=== PATIENT | female | born 1930 | race Caucasian/White ===

== ENCOUNTER 2018-01-09 04:36 | Emergency (ER) | payer MEDICARE ==
[~2018-01-09 04:36] MED LIST: AMOX-362 PO; DICY-42 PO; GLIM2TAB42 PO; LEVO75TA73 PO; METF-421 PO; ONDA4TAB97 PO; SIMV10TA98 PO; TRAM-627 PO
--- NOTE | 2018-01-09 04:38 | ER Report ---
History and Physical Time Seen By MD: 04:38 HPI/ROS CHIEF COMPLAINT: Abdominal pain, right flank pain, chest pain HISTORY OF PRESENT ILLNESS: Patient is an 87-year-old female here with complaints of right-sided abdominal flank pain which woke the patient from sleep at approximately 3:00 this morning. Patient denies prior history of nephrolithiasis however notes that she went to bathroom and within that time. Had several episodes of emesis. Patient then developed chest pain which is localized to the mid sternum with radiation to the left and right chest without shortness of breath. Patient denies fever, chills, shortness of breath, hematuria, dysuria, melena, hematochezia or hematemesis. Patient admits to history of diabetes, hyperlipidemia however denies hypertension, prior history of cardiac disease, smoking. REVIEW OF SYSTEMS: Constitutional: No fever, no chills. Eyes: No discharge. ENT: No sore throat. Cardiovascular: + mild chest pain mid chest with radiation to left and right mid chest, no palpitations. Respiratory: No cough, no shortness of breath. Gastrointestinal: + resolving abdominal pain, + vomiting x 3 episodes Genitourinary: No hematuria. Musculoskeletal: + resolving right flank back pain. Skin: No rashes. Neurological: No headache. Allergies: Coded Allergies: Sulfa (Sulfonamide Antibiotics) (Verified Allergy, Mild, 01/09/18) codeine (Verified Allergy, Mild, MENTAL STATUS CHANGES, 01/09/18) Home Meds Active Scripts Ondansetron (ZOFRAN ODT) 4 Mg Tab.rapdis, 4 MG PO Q6H Y for NAUSEA/VOMITING, # 20 TAB.ANIL 0 Refills Prov:LISA NOLASCO DO 01/09/18 Ciprofloxacin Hcl (CIPROFLOXACIN HCL) 500 Mg Tablet, 500 MG PO Q12H for 7 Days, #14 TAB Prov:LISA NOLASCO DO 01/09/18 Reported Medications Metformin Hcl (METFORMIN HCL) 1,000 Mg Tablet, 0.5 TAB PO BID, TAB 07/25/16 Glimepiride (AMARYL) 2 Mg Tablet, 2 MG PO BID 07/25/16 Levothyroxine Sodium (LEVOTHYROXINE SODIUM) 75 Mcg Tablet, 75 MCG PO QDAY, TAB 07/25/16 Discontinued Reported Medications Simvastatin (SIMVASTATIN) 10 Mg Tablet, 10 MG PO HS, TAB 10/05/16 Discontinued Scripts Tramadol Hcl (ULTRAM) 50 Mg Tablet, 50 MG PO Q6H for PAIN, #20 TAB 0 Refills Prov:ZAHIDA FLANAGAN MD 02/16/17 Amoxicillin (AMOXICILLIN) 500 Mg Capsule, 1 CAP PO Q8H, #21 CAPSULE 0 Refills TAKE ONE CAPSULE BY MOUTH EVERY 8 HOURS Prov:ZAHIDA FLANAGAN MD 02/16/17 Past Medical/Surgical History Arthritis, thyroid disorder, diabetes, HLD Constitutional Vital Sign - Last 24 Hours 01/09/18 01/09/18 01/09/18 01/09/18 04:42 04:43 04:51 05:00 Temp 97.8 Pulse 96 89 Resp 20 18 B/P (MAP) 157/74 157/74 (101) 126/61 (82) Pulse Ox 93 91 O2 Delivery Room Air 01/09/18 01/09/18 01/09/18 01/09/18 05:06 05:21 05:26 06:00 Pulse 74 82 84 Resp 10 16 16 B/P (MAP) 102/46 (64) Pulse Ox 88 88 87 Physical Exam General Appearance: The patient is alert, has no immediate need for airway protection and no signs of toxicity. NAD Eyes: Pupils equal and round no pallor or injection. ENT, Mouth: Mucous membranes are moist. Respiratory: There are no retractions, lungs are clear to auscultation. Cardiovascular: Regular rate and rhythm. Gastrointestinal: Abdomen is soft and non tender, no masses, bowel sounds normal. Neurological: No focal neuro deficits Skin: Warm and dry, no rashes. Musculoskeletal: Neck is supple non tender. Extremities are nontender, nonswollen and have full range of motion. DIFFERENTIAL DIAGNOSIS: After history and physical exam differential diagnosis was considered for nephrolithiasis, urinary tract infection, pyelonephritis, muscle strain, GI infection, food borne illness. Medical Decision Making Data Points Result Diagram: 01/09/18 0505 01/09/18 0505 Laboratory Hematology Test 01/09/18 04:40 01/09/18 05:05 Urine Color Yellow Urine Clarity Slightly-cloudy Urine pH 5.0 pH (4.8-9.5) Urine Specific [place] 1.025 Urine Protein 30 mg/dL (NEGATIVE) Urine Glucose (UA) 50 mg/dL (NEGATIVE) Urine Ketones Negative mg/dL (NEGATIVE) Urine Blood Negative (NEGATIVE) Urine Nitrite Negative (NEGATIVE) Urine Bilirubin Negative (NEGATIVE) Urine Urobilinogen Negative mg/dL (0.2-1.9) Urine Leukocyte Esterase Moderate (NEGATIVE) Urine RBC 1 /HPF (0-2/HPF) Urine WBC 5 /HPF (0-5/HPF) Urine Squamous Epithelial Cells Many /LPF (</=FEW) Urine Bacteria Negative /HPF (NONE-FEW) Urine Hyaline Casts Few /LPF (NONE-FEW) Urine Mucus Few /HPF (NONE-FEW) Red Blood Count 5.14 M/uL (4.17-5.56) Mean Corpuscular Volume 91.0 fL (80.0-96.0) Mean Corpuscular Hemoglobin 31.2 pg (26.0-33.0) Mean Corpuscular Hemoglobin Concent 34.3 g/dL (32.0-36.0) Red Cell Distribution Width 13.7 % (11.5-14.5) Mean Platelet Volume 8.0 fL (7.2-11.1) Neutrophils (%) (Auto) 83.6 % (39.4-72.5) Lymphocytes (%) (Auto) 7.8 % (17.6-49.6) Monocytes (%) (Auto) 7.2 % (4.1-12.4) Eosinophils (%) (Auto) 1.1 % (0.4-6.7) Basophils (%) (Auto) 0.3 % (0.3-1.4) Nucleated RBC Relative Count (auto) 0.0 /100WBC Neutrophils # (Auto) 6.1 K/uL (2.0-7.4) Lymphocytes # (Auto) 0.6 K/uL (1.3-3.6) Monocytes # (Auto) 0.5 K/uL (0.3-1.0) Eosinophils # (Auto) 0.1 K/uL (0.0-0.5) Basophils # (Auto) 0.0 K/uL (0.0-0.1) Nucleated RBC Absolute Count (auto) 0.00 K/uL Prothrombin Time 12.9 seconds (12.0-14.4) Prothromb Time International Ratio 0.97 Activated Partial Thromboplast Time 28 seconds (23-35) Sodium Level 139 mmol/L (137-145) Potassium Level 3.8 mmol/L (3.5-5.0) Chloride Level 107 mmol/L (98-107) Carbon Dioxide Level 23 mmol/L (22-31) Blood Urea Nitrogen 30 mg/dl (7-18) Creatinine 1.20 mg/dl (0.52-1.04) Glomerular Filtration Rate Calc 42.5 Random Glucose 226 mg/dl (75-110) Lactate 1.0 mmol/L (0.7-2.1) Calcium Level 8.8 mg/dl (8.4-10.2) Total Bilirubin 0.9 mg/dl (0.2-1.3) Aspartate Amino Transf (AST/SGOT) 21 U/L (0-35) Alanine Aminotransferase (ALT/SGPT) 23 U/L (0-56) Alkaline Phosphatase 65 U/L (0-126) Troponin I < 0.012 ng/ml B-Type Natriuretic Peptide 43 pg/ml (0-100) Total Protein 6.7 g/dl (6.3-8.2) Albumin 3.6 g/dl (3.5-5.0) Lipase 225 U/L (23-300) Chemistry Test 01/09/18 04:40 01/09/18 05:05 Urine Color Yellow Urine Clarity Slightly-cloudy Urine pH 5.0 pH (4.8-9.5) Urine Specific [place] 1.025 Urine Protein 30 mg/dL (NEGATIVE) Urine Glucose (UA) 50 mg/dL (NEGATIVE) Urine Ketones Negative mg/dL (NEGATIVE) Urine Blood Negative (NEGATIVE) Urine Nitrite Negative (NEGATIVE) Urine Bilirubin Negative (NEGATIVE) Urine Urobilinogen Negative mg/dL (0.2-1.9) Urine Leukocyte Esterase Moderate (NEGATIVE) Urine RBC 1 /HPF (0-2/HPF) Urine WBC 5 /HPF (0-5/HPF) Urine Squamous Epithelial Cells Many /LPF (</=FEW) Urine Bacteria Negative /HPF (NONE-FEW) Urine Hyaline Casts Few /LPF (NONE-FEW) Urine Mucus Few /HPF (NONE-FEW) White Blood Count 7.3 k/uL (4.5-11.0) Red Blood Count 5.14 M/uL (4.17-5.56) Hemoglobin 16.0 g/dL (12.0-16.0) Hematocrit 46.8 % (34.0-47.0) Mean Corpuscular Volume 91.0 fL (80.0-96.0) Mean Corpuscular Hemoglobin 31.2 pg (26.0-33.0) Mean Corpuscular Hemoglobin Concent 34.3 g/dL (32.0-36.0) Red Cell Distribution Width 13.7 % (11.5-14.5) Platelet Count 199 K/uL (150-450) Mean Platelet Volume 8.0 fL (7.2-11.1) Neutrophils (%) (Auto) 83.6 % (39.4-72.5) Lymphocytes (%) (Auto) 7.8 % (17.6-49.6) Monocytes (%) (Auto) 7.2 % (4.1-12.4) Eosinophils (%) (Auto) 1.1 % (0.4-6.7) Basophils (%) (Auto) 0.3 % (0.3-1.4) Nucleated RBC Relative Count (auto) 0.0 /100WBC Neutrophils # (Auto) 6.1 K/uL (2.0-7.4) Lymphocytes # (Auto) 0.6 K/uL (1.3-3.6) Monocytes # (Auto) 0.5 K/uL (0.3-1.0) Eosinophils # (Auto) 0.1 K/uL (0.0-0.5) Basophils # (Auto) 0.0 K/uL (0.0-0.1) Nucleated RBC Absolute Count (auto) 0.00 K/uL Prothrombin Time 12.9 seconds (12.0-14.4) Prothromb Time International Ratio 0.97 Activated Partial Thromboplast Time 28 seconds (23-35) Glomerular Filtration Rate Calc 42.5 Lactate 1.0 mmol/L (0.7-2.1) Calcium Level 8.8 mg/dl (8.4-10.2) Total Bilirubin 0.9 mg/dl (0.2-1.3) Aspartate Amino Transf (AST/SGOT) 21 U/L (0-35) Alanine Aminotransferase (ALT/SGPT) 23 U/L (0-56) Alkaline Phosphatase 65 U/L (0-126) Troponin I < 0.012 ng/ml B-Type Natriuretic Peptide 43 pg/ml (0-100) Total Protein 6.7 g/dl (6.3-8.2) Albumin 3.6 g/dl (3.5-5.0) Lipase 225 U/L (23-300) Coagulation Test 01/09/18 05:05 Prothrombin Time 12.9 seconds Prothromb Time International Ratio 0.97 Activated Partial Thromboplast Time 28 seconds Urinalysis Test 01/09/18 04:40 Urine Color Yellow Urine Clarity Slightly-cloudy Urine pH 5.0 pH (4.8-9.5) Urine Specific [place] 1.025 Urine Protein 30 mg/dL (NEGATIVE) Urine Glucose (UA) 50 mg/dL (NEGATIVE) Urine Ketones Negative mg/dL (NEGATIVE) Urine Blood Negative (NEGATIVE) Urine Nitrite Negative (NEGATIVE) Urine Bilirubin Negative (NEGATIVE) Urine Urobilinogen Negative mg/dL (0.2-1.9) Urine Leukocyte Esterase Moderate (NEGATIVE) Urine RBC 1 /HPF (0-2/HPF) Urine WBC 5 /HPF (0-5/HPF) Urine Squamous Epithelial Cells Many /LPF (</=FEW) Urine Bacteria Negative /HPF (NONE-FEW) Urine Hyaline Casts Few /LPF (NONE-FEW) Urine Mucus Few /HPF (NONE-FEW) EKG/Imaging EKG Interpretation 12 lead EKG: Normal sinus rhythm, rate 85, QTc 459, incomplete bundle branch block Rhythm: normal sinus rhythm [place]: normal QRS: normal ST segments: normal Monitor Interpretation: Normal Sinus Rhythm Imaging COMPUTED TOMOGRAPHY ABDOMEN AND PELVIS WITH INTRAVENOUS CONTRAST DATE OF EXAM: 01/09/2018 4:50 AM INDICATION: Generalized chest and abdominal pain. COMPARISON: None. TECHNIQUE: Contrast enhanced abdomen and pelvis CT performed during the injection of 75 ml of Isovue 370. Sagittal and coronal reconstructions were performed. One of the following dose optimization techniques was utilized in the performance of this exam: Automated exposure control; adjustment of the mA and/or kV according to the patient's size; or use of an iterative reconstruction technique. Specific details can be referenced in the facility's radiology CT exam operational policy. FINDINGS: Lung bases: 2 mm right lower lobe nodule on image 19 series 2 and 4 mm left lower lobe nodule on image 15. Mild atelectasis. Coronary artery calcifications. Liver and hepatic vasculature: Normal. Gallbladder and bile ducts: Normal. Spleen: Normal. Pancreas: 14 mm relatively thin-walled cystic lesion with small adjacent calcification near the junction of the body and tail of the pancreas. No apparent acute abnormality. Adrenals: Normal. Kidneys, ureters and bladder: No acute abnormality or suspicious lesion. Bilateral parapelvic cysts as well as exophytic cortical cyst on the right. Retroperitoneum and aorta: Nonaneurysmal aorta with [id number] atherosclerosis. No adenopathy. GI tract, mesentery and peritoneum: Several loops of small bowel may have slightly increased wall enhancement. No evidence of obstruction. No pneumatosis or pneumoperitoneum. No significant free fluid. Normal appendix. Moderate to severe sigmoid diverticulosis. Small hiatal hernia. Uterus and adnexa: 2 cm simple appearing left ovarian cyst. Otherwise unremarkable. Bones and soft tissues: No acute abnormality or suspicious lesion. Osteitis pubis. Moderate multilevel spondylosis. L5 and S1 are fused. IMPRESSION: 1. Question infectious or inflammatory enteritis. 2. Moderate to severe colonic diverticulosis. 3. Small hiatal hernia. 4. Pulmonary nodules measuring up to 4 mm in diameter. Current Fleischner Society recommendations for incidental pulmonary nodules <6mm in size (average of long and short axis): - In a patient with low risk for malignancy (i.e., minimal or absent smoking history, no known malignancy or other risk factors): No routine follow-up. - In a patient at high risk for malignancy (e.g., smoking history and/or other known risk factors): Optional noncontrast CT at 12 months. If unchanged no further follow-up necessary. Nodules less than 6 mm do not require routine follow-up, but certain patients at high risk with suspicious nodule morphology, upper lobe location, or both may warrant 12 month follow-up. Jimmie H, Leonardo D, Nicole J, et al. Guidelines for management of small pulmonary nodules detected on CT images: from the Fleischner society 2017. 5. 14 mm cystic pancreatic lesion with no apparent worrisome features. INCIDENTAL PANCREATIC CYST FOLLOWUP IN PATIENTS ? 80 YEARS OLD Assuming absence of Worrisome Features/High-Risk Stigmata on imaging, clinical findings relevant to the pancreas (including jaundice, anorexia, weight loss, palpable mass, or steatorrhea), or a relevant abnormal laboratory value (eg, elevated amylase) Follow-up imaging with Pancreas protocol CT or MRI (with and without contrast) *The decision to pursue imaging follow-up and/or EUS/FNA should be anchored to a patient's overall health and preferences; such work up is only advised if the patient is a surgical candidate Cyst ? 2.5 cm * Reimage q 2 years x 2 * STOP if stable * Interval growth (Defined as 100% increase in l ngest axis diameter for cysts <0.5cm, 50% increase for cysts >= 0.5cm and <1.5cm, and 20% increase for cysts >= 1.5 cm.) * Cyst is still <= 2.5 cm * Reimage q 1 year* STOP if stabilizes or if no longer surgical candidate ( The decision to discontinue imaging follow-up is dependent on a patient's surgical candidacy and preferences, and the duration of the cyst's stability. * Cyst is > 2.5 cm * EUS/FNA based on overall health, preferences, and surgical candidacy "High Risk Stigmata" Obstructive jaundice with cyst in head of pancreas Enhancing solid component within thee cyst Main pancreatic duct caliber >10mm in absence of obstructing lesion Reference: ACR. Management of Incidental Pancreatic Cysts: A White Paper of the ACR Incidental Findings Committee JACR. Nov, 2016. [email or web address] TWO VIEW CHEST 01/09/2018 4:50 AM. INDICATION: Chest and abdominal pain. COMPARISON: Same day CT abdomen and pelvis. FINDINGS: Lungs are well-expanded. Mild atelectasis, lungs are otherwise clear. No pneumothorax or pleural effusion. Pulmonary vasculature is unremarkable. Heart size is normal. IMPRESSION: No acute cardiopulmonary abnormality. ED Course/Re-evaluation ED Course Patient is an 87-year-old female here with complaints of abdominal pain, flank pain, nausea, vomiting which woke the patient at approximately 3:00 this morning. Patient reports several episodes of emesis followed by bilateral and mid sternal chest pain without shortness breath, cough, fevers. She initially reported having right-sided flank pain, right-sided abdominal pain which has since improved. Patient admits to a history of hyperlipidemia, diabetes however denies hypertension, smoking history, history of cardiac disease. Patient labs were remarkable for mild DEMETRIA with a creatinine 1.2, glucose at 226. Lactate was unremarkable at 1.0. UA showed moderate leuk esterase, culture pending. EKG showed no acute ischemic findings. Troponin undetectable on initial draw. Patient received a bolus of normal saline, Zofran, aspirin. On further clinical evaluation, patient's symptoms seemed to be more localized to the intra- abdominal region. Chest x-ray showed no acute findings. CT abdomen and pelvis showed no acute findings, (patient was advised to follow up with PCP regarding incidental findings and possible need for re imaging at a later date, see report ). Patient was placed on Cipro for a presumed complicated UTI due to clinical presentation. Urine culture pending. Patient agreed to follow up with PCP in the next several days and to return promptly if she develops worsening symptoms , abdominal pain, dyspnea, fevers, poor PO intake. . Decision to Disposition Date: Jan 09, 2018 Decision to Disposition Time: 06:38 Depart Departure Latest Vital Signs Vital Signs Date Time Temp Pulse Resp B/P (MAP) Pulse Ox O2 Delivery O2 Flow Rate FiO2 01/09/18 06:00 102/46 (64) 01/09/18 05:26 84 16 87 01/09/18 04:42 97.8 Room Air Impression: Primary Impression: UTI (urinary tract infection) Additional Impression: Nausea & vomiting Condition: Improved Disposition: HOME OR SELF-CARE Referrals: ISABELA GARCIA DO (PCP) New Scripts Ondansetron (ZOFRAN ODT) 4 Mg Tab.rapdis 4 MG PO Q6H Y for NAUSEA/VOMITING, #20 TAB.ANIL 0 Refills Prov: LISA NOLASCO DO 01/09/18 Ciprofloxacin Hcl (CIPROFLOXACIN HCL) 500 Mg Tablet 500 MG PO Q12H for 7 Days, #14 TAB Prov: LISA NOLASCO DO 01/09/18 Patient Instructions: Acute Nausea and Vomiting (ED), Ciprofloxacin (By mouth) , Ondansetron (By mouth, Into the mouth), Urinary Tract Infection in Women (ED) Additional Instructions: Please hold taking your metformin for the next 48 hours as you had been given contrast dye for your CT scan. Please drink plenty of water. As mentioned previously, there were several incidental findings on the CT scan that he should discuss with her family doctor as they may need further repeat imaging in the future. You will be treated for a urinary tract infection a complete 7 day course of ciprofloxacin (urine culture is pending). Please take one tablet twice daily for 7 days. Please return promptly should you develop worsening pain , nausea, vomiting, fevers or chills. You may take 1 tablet of Zofran every 6-8 hours as needed for nausea Problem Qualifiers LISA NOLASCO DO Jan 09, 2018 04:38
[2018-01-09] MEDS ORDERED: NS(*) 0.9% 1000 ML BAG 1,000 ML IV ONE (04:50)
[2018-01-09] MEDS ORDERED: ONDANSETRON 4 MG/2 ML VIAL IVP ONE (04:50)
[2018-01-09] MEDS ORDERED: ASPIRIN 81 MG CHEW PO ONE (04:50)
--- NOTE | 2018-01-09 05:04 | EKG ---
FACILITY: [facility] PATIENT NAME: HEIDY MONTELONGO : [id number] MR: [id number] V: [id number] EXAM DATE: ORDERING PHYSICIAN: LISA NOLASCO TECHNOLOGIST: WILEY Test Reason : CP Blood Pressure : / mmHG Vent. Rate : 085 BPM Atrial Rate : 085 BPM P-R Int : 176 ms QRS Dur : 094 ms QT Int : 386 ms P-R-T Axes : 059 080 058 degrees QTc Int : 459 ms Normal sinus rhythm Incomplete right bundle branch block Borderline ECG When compared with ECG of 25-JUL-2016 13:54, Previous ECG has undetermined rhythm, needs review Confirmed by JUDIT SKINNER ([id number]) on 01/09/2018 6:49:33 AM Referred By: GAURAV Confirmed By:JUDIT SKINNER
[2018-01-09] MEDS ORDERED: IOPAMIDOL 76% 100 ML INFUS BTL 100 ML ONE (05:07)
[2018-01-09 05:14] LABS: PLATELET COUNT, AUTOMATED 199 K/uL (150-450)
[2018-01-09 05:27] LABS: INR 0.97
--- NOTE | 2018-01-09 06:15 | RADIOLOGY IMAGING REPORT ---
FACILITY: [facility] [place] PATIENT NAME: Micheline Phoenix : 1930 MR: [id number] V: [id number] EXAM DATE: [id number] ORDERING PHYSICIAN: LISA NOLASCO TECHNOLOGIST: Location: [facility] Patient: Micheline Phoenix : 1930 Visit/Account:[id number] Date of Sevice: 01/09/2018 COMPUTED TOMOGRAPHY ABDOMEN AND PELVIS WITH INTRAVENOUS CONTRAST DATE OF EXAM: 01/09/2018 4:50 AM INDICATION: Generalized chest and abdominal pain. COMPARISON: None. TECHNIQUE: Contrast enhanced abdomen and pelvis CT performed during the injection of 75 ml of Isovue 370. Sagittal and coronal reconstructions were performed. One of the following dose optimization te chniques was utilized in the performance of this exam: Automated exposure control; adjustment of the mA and/or kV according to the patient's size; or use of an iterative reconstruction technique. Spec [facility] details can be referenced in the facility's radiology CT exam operational policy. FINDINGS: Lung bases: 2 mm right lower lobe nodule on image 19 series 2 and 4 mm left lower lobe nodule on imag e 15. Mild atelectasis. Coronary artery calcifications. Liver and hepatic vasculature: Normal. Gallbladder and bile ducts: Normal. Spleen: Normal. Pancreas: 14 mm relatively thin-walled cystic lesion with small adjacent calcification near the junc tion of the body and tail of the pancreas. No apparent acute abnormality. Adrenals: Normal. Kidneys, ureters and bladder: No acute abnormality or suspicious lesion. Bilateral parapelvic cysts as well as exophytic cortical cyst on the right. Retroperitoneum and aorta: Nonaneurysmal aorta with [id number] atherosclerosis. No adenopathy . GI tract, mesentery and peritoneum: Several loops of small bowel may have slightly increased wall en hancement. No evidence of obstruction. No pneumatosis or pneumoperitoneum. No significant free flu id. Normal appendix. Moderate to severe sigmoid diverticulosis. Small hiatal hernia. Uterus and adnexa: 2 cm simple appearing left ovarian cyst. Otherwise unremarkable. Bones and soft tissues: No acute abnormality or suspicious lesion. Osteitis pubis. Moderate multil evel spondylosis. L5 and S1 are fused. IMPRESSION: 1. Question infectious or inflammatory enteritis. 2. Moderate to severe colonic diverticulosis. 3. Small hiatal hernia. 4. Pulmonary nodules measuring up to 4 mm in diameter. Current Fleischner Society recommendations f or incidental pulmonary nodules <6mm in size (average of long and short axis): - In a patient with low risk for malignancy (i.e., minimal or absent smoking history, no known malig breezy or other risk factors): No routine follow-up. - In a patient at high risk for malignancy (e.g., smoking history and/or other known risk factors): Optional noncontrast CT at 12 months. If unchanged no further follow-up necessary. Nodules less than 6 mm do not require routine follow-up, but certain patients at high risk with suspi cious nodule morphology, upper lobe location, or both may warrant 12 month follow-up. Jimmie H, Leonardo Guillory, Nicole J, et al. Guidelines for management of small pulmonary nodules detected on CT images: from the Fleischner society 2017. 5. 14 mm cystic pancreatic lesion with no apparent worrisome features. INCIDENTAL PANCREATIC CYST FO LLOWUP IN PATIENTS ? 80 YEARS OLD Assuming absence of Worrisome Features/High-Risk Stigmata on imaging, clinical findings relevant to t he pancreas (including jaundice, anorexia, weight loss, palpable mass, or steatorrhea), or a relevant abnormal laboratory value (eg, elevated amylase) Follow-up imaging with Pancreas protocol CT or MRI (with and without contrast) *The decision to pursue imaging follow-up and/or EUS/FNA should be anchored to a patient's overall he alth and preferences; such work up is only advised if the patient is a surgical candidate Cyst ? 2.5 cm * Reimage q 2 years x 2 * STOP if stable * Interval growth (Defined as 100% increase in l ngest axis diameter for cysts <0.5cm, 50% increase for cysts >= 0.5cm and <1.5cm, and 20% increase for cysts >= 1.5 cm.) * Cyst is still <= 2.5 cm * Reimage q 1 year* STOP if stabilizes or if no longer surgical candidate (The decision to disconti nue imaging follow-up is dependent on a patient's surgical candidacy and preferences, and the duratio n of the cyst's stability. * Cyst is > 2.5 cm * EUS/FNA based on overall health, preferences, and surgical candidacy "High Risk Stigmata" Obstructive jaundice with cyst in head of pancreas Enhancing solid component within thee cyst Main pancreatic duct caliber >10mm in absence of obstructing lesion Reference: ACR. Management of Incidental Pancreatic Cysts: A White Paper of the ACR Incidental Findi ngs Committee JACR. Nov, 2016. [email or web address] Report Dictated By: José Vieira MD at 01/09/2018 6:01 AM Report E-Signed By: José Vieira MD at 01/09/2018 6:11 AM WSN:[id number]
--- NOTE | 2018-01-09 06:15 | RADIOLOGY IMAGING REPORT ---
FACILITY: [facility] PATIENT NAME: Micheline Phoenix : 1930 MR: [id number] V: [id number] EXAM DATE: ORDERING PHYSICIAN: LISA NOLASCO TECHNOLOGIST: Location: [facility] Patient: Micheline Phoenix : 1930 Visit/Account:[id number] Date of Sevice: 01/09/2018 TWO VIEW CHEST 01/09/2018 4:50 AM. INDICATION: Chest and abdominal pain. COMPARISON: Same day CT abdomen and pelvis. FINDINGS: Lungs are well-expanded. Mild atelectasis, lungs are otherwise clear. No pneumothorax or pleural effusion. Pulmonary vasculature is unremarkable. Heart size is normal. IMPRESSION: No acute cardiopulmonary abnormality. Report Dictated By: José Vieira MD at 01/09/2018 6:11 AM Report E-Signed By: José Vieira MD at 01/09/2018 6:12 AM WSN:[id number]
[2018-01-09 06:30] VITALS: BP 109/57
[2018-01-09] MEDS ORDERED: CIPROFLOXACIN 500 MG TAB PO ONE (06:40)
[2018-01-09] MEDS ORDERED: ONDA4TAB PO (06:40)
[2018-01-09] MEDS ORDERED: CIPR-214 PO (06:40)
== END 2018-01-09 07:03 | disposition home or self-care (01) ==
LOC: ER 05:05
DX: N39.0 Urinary tract infection, site not specified (principal); E11.9 Type 2 diabetes mellitus without complications; K57.30 Diverticulosis of large intestine without perforation or abscess without bleeding; R91.8 Other nonspecific abnormal finding of lung field; K44.9 Diaphragmatic hernia without obstruction or gangrene
CPT/HCPCS: 71046; 74177; 81001; 83605; 83690; 83880; 84484; 85025; 85610; 85730; 87088; 93005; 96374; 99285; A9270; J2405; Q9967; 82040; 82247; 82310; 82374; 82435; 82565; 82947; 84075; 84132; 84155; 84295; 84450; 84460; 84520

== ENCOUNTER 2018-09-06 19:05 | Emergency (ER) | payer MEDICARE ==
[~2018-09-06 19:05] MED LIST changes: +CIPR-214 PO; -METF-421 PO; +METF-452 PO; +ONDA4TAB PO
--- NOTE | 2018-09-06 19:33 | ER Report ---
History and Physical Time Seen By MD: 19:13 Hx. of Stated Complaint: Pt. having right wrist pain after trying to put together a bookshelf yesterday. HPI/ROS CHIEF COMPLAINT: wrist pain HISTORY OF PRESENT ILLNESS: This is an 88 year old female. She has severe right wrist pain. No fall or known injury, but thinks she might have hurt it when trying to put together a bookcase yesterday. She was bending over on her knees and trying to put in screws with a screwdriver. She was unable to complete it and had her grandson finish it for her. Today with severe pain in the wrist with any twisting or flexion or extension. Tried using a wrist compression sleeve and some Acetaminophen. She is also having some left foot pain and some right lower back pain that started today as well. Normal sensation in all extremities. REVIEW OF SYSTEMS: Respiratory: No cough, no dyspnea. Cardiovascular: No chest pain. Gastrointestinal: No vomiting, no abdominal pain. Genitourinary: No trouble with urination. Allergies: Coded Allergies: Sulfa (Sulfonamide Antibiotics) (Verified Allergy, Mild, 09/06/18) codeine (Verified Allergy, Mild, MENTAL STATUS CHANGES, 09/06/18) Home Meds Reported Medications Metformin Hcl (METFORMIN HCL) 1,000 Mg Tablet, 0.5 TAB PO BID, TAB 07/25/16 Glimepiride (AMARYL) 2 Mg Tablet, 2 MG PO BID 07/25/16 Levothyroxine Sodium (LEVOTHYROXINE SODIUM) 75 Mcg Tablet, 75 MCG PO QDAY, TAB 07/25/16 Discontinued Scripts Ondansetron (ZOFRAN ODT) 4 Mg Tab.rapdis, 4 MG PO Q6H PRN for NAUSEA/VOMITING, #20 TAB.ANIL 0 Refills Prov:LISA NOLASCO DO 01/09/18 Ciprofloxacin 500 Mg Tab (CIPROFLOXACIN 500 MG TAB) 500 Mg Tablet, 500 MG PO Q12H for 7 Days, #14 TAB Prov:LISA NOLASCO DO 01/09/18 Reviewed Nurses Notes: Yes Constitutional Vital Sign - Last 24 Hours 09/06/18 09/06/18 09/06/18 09/06/18 19:05 19:10 19:13 19:15 Pulse ? 99 B/P (MAP) 165/79 (107) Pulse Ox 90 09/06/18 09/06/18 09/06/18 09/06/18 19:17 19:20 19:25 19:30 Temp 98.6 Pulse 97 96 97 95 Resp 16 B/P (MAP) 165/79 154/77 (102) Pulse Ox 91 90 90 91 O2 Delivery Room Air 09/06/18 09/06/18 09/06/18 09/06/18 19:35 19:40 19:45 19:50 Pulse 90 89 86 81 Pulse Ox 91 89 90 90 09/06/18 09/06/18 20:00 20:30 B/P (MAP) 131/65 (87) 113/60 (77) Physical Exam General Appearance: Alert, no acute distress. Eyes: Pupils equal and round no injection. ENT: Normal moist mucous membranes. Neck: Neck is supple and non tender. Respiratory: Breathing easily, clear. Cardiac: regular rate and rhythm, normal pulses in extremities. Normal capillary refill. Neuro: Normal sensation in extremities. Musculoskeletal: Pain with active range of motion, less with passive of the right wrist, with flexion, extension and both internal and external rotation. No pain with palpation of the radius, ulna or bones of the hands and fingers. No pain in elbow or upper arm. Left foot has pain in the area of the 4th and 5th metatarsals. Pain with active motion, less with passive motion. No pain with palpation of the lateral or medial maleolus. Has some mild pain in the paraspinous muscles of the right lumbar area. Skin: No rashes or lesions. DIFFERENTIAL DIAGNOSIS: After history and physical exam differential diagnosis was considered for wrist, foot and back pain, all likely overuse injury, but based on pain level and history of arthritis, will check x-rays. Percocet given for pain. Medical Decision Making EKG/Imaging Imaging EXAMINATION: Left foot 3 views HISTORY: Pain. COMPARISON: None. FINDINGS: No evidence of acute fracture or dislocation at the left foot. Osteopenia with multifocal degenerative changes. There are hammertoe deformities of the second through fifth toes. Soft tissue swelling along the left foot. IMPRESSION: 1. No acute osseous findings in the left foot. 2. Osteopenia with chronic multifocal degenerative changes. Report Dictated By: Rush Rodriguez MD at 09/06/2018 8:26 PM EXAMINATION: Right wrist 3 views HISTORY: Wrist pain. COMPARISON: 10/05/2016. FINDINGS: Bones of the right wrist are diffusely osteopenic with advanced multifocal degenerative changes. There are severe degenerative changes at the radiocarpal joint with complete loss of the radiolunate joint space with [id number] con tact and sclerosis and some chronic remodeling of the articular surface of the distal radius. There appears to be dorsal subluxation of the distal ulna which is new from the prior exam but of uncertain chronicity. There is chronic appearing irregularity at the tip of the distal ulna with moderate overlying soft tissue swelling. No definite acute fracture. Advanced degenerative changes at the first CMC joint. No clear evidence of acute fracture about the right wrist. IMPRESSION: 1. Osteopenia with multifocal degenerative changes, greatest at the radiocarpal joint and first CMC joint. 2. There appears to be dorsal subluxation of the distal ulna, of uncertain clinicity, with some chronic appearing irregularity of the distal ulna and overlying soft tissue swelling. 3. No evidence of acute fracture at the right wrist. Report Dictated By: Rush Rodriguez MD at 09/06/2018 8:12 PM ED Course/Re-evaluation ED Course Patient given Percocet 5/325 x 1 for pain. Imaging negative for fracture. Acute overuse injury appears to be the cause of her pain. Discussed this with the patient and her daughter. Anti-inflammatory treatment with Naproxen Sodium, temporary Percocet. Decision to Disposition Date: Sep 06, 2018 Decision to Disposition Time: 21:05 Depart Departure Latest Vital Signs Vital Signs Date Time Temp Pulse Resp B/P (MAP) Pulse Ox O2 Delivery O2 Flow Rate FiO2 09/06/18 20:30 113/60 (77) 09/06/18 19:50 81 90 09/06/18 19:17 98.6 16 Room Air Impression: Primary Impression: Tendonitis of wrist, right Additional Impressions: Tendonitis of ankle or foot Overuse syndrome of multiple sites Condition: Improved Disposition: HOME OR SELF-CARE Referrals: ISABELA GARCIA DO (PCP) Patient Instructions: Musculoskeletal Pain (ED) Additional Instructions: Your pain is caused by overuse, causing inflammation of the tendons. This should resolve over the next few days. Take over the counter Aleve (Naproxen Sodium), two tablets twice a day with food. Take Percocet 5/325, one every 4 hours as needed for severe pain. You can use the wrist compression sleeve and an NORBERTO wrap on your foot. Sling as needed for pain/comfort. Problem Qualifiers HI LUEVANO MD Sep 06, 2018 19:33
--- NOTE | 2018-09-06 20:29 | RADIOLOGY IMAGING REPORT ---
FAC[place] [facility] [place]IENT NAME: Micheline Phoenix : 1930 MR: [id number] V: [id number] EXAM DATE: ORDERING PHYSICIAN: HI LUEVANO TECHNOLOGIST: Location: [facility] - [place] Patient: Micheline Phoenix : 1930 Visit/Account:[id number] Date of Sevice: 09/06/2018 EXAMINATION: Right wrist 3 views HISTORY: Wrist pain. COMPARISON: 10/05/2016. FINDINGS: Bones of the right wrist are diffusely osteopenic with advanced multifocal degenerative changes. The re are severe degenerative changes at the radiocarpal joint with complete loss of the radiolunate brooks nt space with [id number] contact and sclerosis and some chronic remodeling of the articular surface of the distal radius. There appears to be dorsal subluxation of the distal ulna which is new from the prior exam but of unc ertain chronicity. There is chronic appearing irregularity at the tip of the distal ulna with moderat e overlying soft tissue swelling. No definite acute fracture. Advanced degenerative changes at the first CMC joint. No clear evidence of acute fracture about the right wrist. IMPRESSION: 1. Osteopenia with multifocal degenerative changes, greatest at the radiocarpal joint and first CMC j oint. 2. There appears to be dorsal subluxation of the distal ulna, of uncertain clinicity, with some chron ic appearing irregularity of the distal ulna and overlying soft tissue swelling. 3. No evidence of acute fracture at the right wrist. Report Dictated By: Rush Rodriguez MD at 09/06/2018 8:12 PM Report E-Signed By: Rush Rodriguez MD at 09/06/2018 8:26 PM WSN:[id number]
[2018-09-06 20:30] VITALS: BP 113/60
--- NOTE | 2018-09-06 20:31 | RADIOLOGY IMAGING REPORT ---
FACILITY: [facility] - [place] PATIENT NAME: Micheline Phoenix : 1930 MR: [id number] V: [id number] EXAM DATE: ORDERING PHYSICIAN: HI LUEVANO TECHNOLOGIST: Location: [facility] - [place] Patient: Micheline Phoenix : 1930 Visit/Account:[id number] Date of Sevice: 09/06/2018 EXAMINATION: Left foot 3 views HISTORY: Pain. COMPARISON: None. FINDINGS: No evidence of acute fracture or dislocation at the left foot. Osteopenia with multifocal degenerative changes. There are hammertoe deformities of the second throug h fifth toes. Soft tissue swelling along the left foot. IMPRESSION: 1. No acute osseous findings in the left foot. 2. Osteopenia with chronic multifocal degenerative changes. Report Dictated By: Rush Rodriguez MD at 09/06/2018 8:26 PM Report E-Signed By: Rsuh Rodriguez MD at 09/06/2018 8:27 PM WSN:[id number]
[2018-09-06] MEDS ORDERED: oxyCODONE/ACETAMIN 5/325MG TH 2 TAB/BOTTLE PO ONE (21:05)
== END 2018-09-06 21:39 | disposition home or self-care (01) ==
LOC: ER 19:19
DX: M70.89 Other soft tissue disorders related to use, overuse and pressure multiple sites (principal)
CPT/HCPCS: 73110; 73630; 99284; A4565; A9270